=== PATIENT | female | born 1995 | race African-American/Black ===

== ENCOUNTER 2017-11-19 00:22 | Emergency (ER) | payer OTHER ==
[~2017-11-19] VITALS: Ht 170.2 cm; Wt 94.0 kg
[~2017-11-19 00:22] MED LIST: NITR1CAP32 PO
[2017-11-19 00:26] VITALS: Ht 170.2 cm; Wt 94.0 kg
--- NOTE | 2017-11-19 00:50 | EMERGENCY ROOM VISIT NOTE ---
History First contact with patient: 00:33 Chief Complaint: CHEST PAIN Stated Complaint: CHEST PAIN History of Present Illness The patient is a 22 year old female who presents to the Emergency Room with complaints of chest pain. The patient reports that she developed pressure in the middle of her chest approximately 20 minutes prior to arrival. The pain radiated to her back. She rated the discomfort a 2/10. She states that when the pain occurred, she was lying down playing a game. She states the pain gradually improved and has resolved at this time. She reports she is currently on an antibiotic for a urinary tract infection. She denies any shortness of breath, abdominal pain, nausea/vomiting, recent illness or fevers. She denies any history of cardiac problems. She denies any family history of cardiac problems at a young age. Review of Systems A complete 10 point review of systems was reviewed with the patient with pertinent positives and negatives as per history of present illness. All else were negative. Past Medical/Surgical History Medical Problems: (1) No significant past medical history Surgical Problems: (1) No significant past surgical history Family History No family history of heart disease Social History Smoking Status: Never Smoker Marital Status: in relationship Housing Status: lives with significant other Current/Historical Medications Scheduled Nitrofurantoin Macrocrystals (Macrodantin), 1 CAP PO BID Physical Exam Vital Signs Date Time Temp Pulse Resp B/P (MAP) Pulse Ox O2 Delivery O2 Flow Rate FiO2 11/19/17 02:24 36.9 98 20 128/81 94 11/19/17 01:06 98 11/19/17 00:53 94 Room Air 11/19/17 00:26 36.9 104 20 128/81 98 Room Air Physical Exam VITALS: Vitals are noted on the nurse's note and reviewed by myself. Vital signs stable. GENERAL: This is a 22-year-old female, in no acute distress, nondiaphoretic, well-developed well-nourished. SKIN: The skin was without rashes. EARS: External auditory canals clear, tympanic membranes pearly vargas without erythema or effusion bilaterally. EYES: Pupils equal round and reactive to light and accommodation. MOUTH: Mucous membranes moist. Tonsils are not enlarged. Pharynx without erythema or exudate. NECK: Supple without nuchal rigidity. No lymphadenopathy. HEART: Regular rate and rhythm without murmurs gallops or rubs. LUNGS: Clear to auscultation bilaterally without wheezes, rales or rhonchi. No retractions or accessory muscle use. ABDOMEN: Positive bowel sounds x 4. Soft, nontender to palpation. NEURO: Patient was alert and oriented to person place and time. Medical Decision & Procedures ER Provider Diagnostic Interpretation: CHEST X-RAY: Normal cardiac silhouette. No bony abnormalities. No pneumothorax or pulmonary infiltrate. Per my interpretation Laboratory Results 11/19/17 00:45 Red Blood Count 4.69, Mean Corpuscular Volume 87.2, Mean Corpuscular Hemoglobin 29.0, Mean Corpuscular Hemoglobin Concent 33.3, Mean Platelet Volume 8.9, Neutrophils (%) (Auto) 52.1, Lymphocytes (%) (Auto) 37.3, Monocytes (%) (Auto) 8.3, Eosinophils (%) (Auto) 1.7, Basophils (%) (Auto) 0.4, Neutrophils # (Auto) 2.78, Lymphocytes # (Auto) 1.99, Monocytes # (Auto) 0.44, Eosinophils # (Auto) 0.09, Basophils # (Auto) 0.02 11/19/17 00:45 Test 11/19/17 00:45 White Blood Count 5.33 K/uL (4.8-10.8) Red Blood Count 4.69 M/uL (4.2-5.4) Hemoglobin 13.6 g/dL (12.0-16.0) Hematocrit 40.9 % (37-47) Mean Corpuscular Volume 87.2 fL (80-100) Mean Corpuscular Hemoglobin 29.0 pg (25-34) Mean Corpuscular Hemoglobin Concent 33.3 g/dl (32-36) Platelet Count 345 K/uL (130-400) Mean Platelet Volume 8.9 fL (7.4-10.4) Neutrophils (%) (Auto) 52.1 % Lymphocytes (%) (Auto) 37.3 % Monocytes (%) (Auto) 8.3 % Eosinophils (%) (Auto) 1.7 % Basophils (%) (Auto) 0.4 % Neutrophils # (Auto) 2.78 K/uL (1.4-6.5) Lymphocytes # (Auto) 1.99 K/uL (1.2-3.4) Monocytes # (Auto) 0.44 K/uL (0.11-0.59) Eosinophils # (Auto) 0.09 K/uL (0-0.5) Basophils # (Auto) 0.02 K/uL (0-0.2) RDW Standard Deviation 41.1 fL (36.4-46.3) RDW Coefficient of Variation 13.0 % (11.5-14.5) Immature Granulocyte % (Auto) 0.2 % Immature Granulocyte # (Auto) 0.01 K/uL (0.00-0.02) Anion Gap 6.0 mmol/L (3-11) Est Creatinine Clear Calc Drug Dose 121.6 ml/min Estimated GFR () 112.7 Estimated GFR (Non- 97.3 BUN/Creatinine Ratio 14.8 (10-20) Calcium Level 9.1 mg/dl (8.5-10.1) Total Bilirubin 0.4 mg/dl (0.2-1) Aspartate Amino Transf (AST/SGOT) 14 U/L (15-37) Alanine Aminotransferase (ALT/SGPT) 24 U/L (12-78) Alkaline Phosphatase 73 U/L (45-117) Troponin I < 0.015 ng/ml (0-0.045) Total Protein 8.1 gm/dl (6.4-8.2) Albumin 4.2 gm/dl (3.4-5.0) Globulin 3.9 gm/dl (2.5-4.0) Albumin/Globulin Ratio 1.1 (0.9-2) ECG Rate (beats per minute): 92 Rhythm: normal sinus Findings: no acute ischemic change, no ectopy Comparison ECG Date: no prior available Medical Decision Differential diagnosis includes acute coronary syndrome, pulmonary embolism, pneumothorax, pericarditis, myocarditis, endocarditis, anxiety, musculoskeletal pain, GERD, costochondritis, pneumonia, among others. The patient is a 22-year-old female who presents today complaining of chest pain which resolved on presentation. Labs revealed no leukocytosis, anemia or concerning electrolyte abnormalities. Troponin was not elevated. EKG was interpreted by myself and shows no ischemic findings. Patient was reassured regarding workup tonight and instructed to follow-up with her primary care provider for further evaluation. The patient's case was reviewed with Dr. Browne, ED attending physician, who agreed with my assessment and treatment plan. Based on the patient's presentation and work up, I feel the patient is stable for outpatient treatment. The patient was educated to return to the emergency department for any worsening of their current condition or new/concerning symptoms. She will follow up with her PCP. Medication Reconcilliation Current Medication List: was personally reviewed by me Blood Pressure Screening Patient's blood pressure: Normal blood pressure Impression Primary Impression: Substernal precordial chest pain Departure Information Dispostion Home / Self-Care Condition GOOD Referrals No Doctor, Assigned (PCP) Patient Instructions My [facility] Additional Instructions You have been treated in the Emergency Department for your Non-Cardiac Chest Pain. Laboratory results and Imaging Studies have ruled out any cardiac or pulmonary cause of your chest pain. For pain control, you can use the following pybl-vua-ztrbbvs medicines (if >12 yo): - Regular strength (325mg/tab) Tylenol (acetaminophen) 2 tabs every 4-6 hours as needed. Do not exceed 12 tablets in a 24 hour period. Avoid taking more than 4 grams (4000 mg) of Tylenol per day. This includes any other sources of acetaminophen you may take on a regular basis. - Regular strength (200 mg/tab) Advil (ibuprofen) 1-2 tabs every 4-6 hours as needed. Do not exceed a dose of 3200 mg per day. You should schedule a follow-up appointment with your Primary Care Provider in 2 -3 days for further evaluation from today's Emergency Department visit. Return to the Emergency Department if your current symptoms worsen despite treatment course outlined above, or if you develop any of the following symptoms : worsening chest pain, associated jaw/arm pain, nausea, dizziness, shortness of breath, bloody cough, or fainting.
[2017-11-19 00:58] LABS: BASO % 0.4 %; BASO ABS # 0.02 K/uL (0-0.2); EOS % 1.7 %; EOS ABS # 0.09 K/uL (0-0.5); HEMATOCRIT 40.9 % (37-47); HEMOGLOBIN 13.6 g/dL (12.0-16.0); IG# 0.01 K/uL (0.00-0.02); LYMPH % 37.3 %; LYMPH ABS # 1.99 K/uL (1.2-3.4); MEAN CELL VOLUME 87.2 fL (80-100); MEAN CORPUSCULAR HGB CONC 33.3 g/dl (32-36); MEAN PLATELET VOLUME 8.9 fL (7.4-10.4); MONO % 8.3 %; MONO ABS # 0.44 K/uL (0.11-0.59); NEUT % 52.1 %; NEUT ABS # 2.78 K/uL (1.4-6.5); PLATELET COUNT 345 K/uL (130-400); RED CELL DISTRIBUTION WIDTH SD 41.1 fL (36.4-46.3); WHITE BLOOD COUNT 5.33 K/uL (4.8-10.8)
[2017-11-19 01:15] LABS: ALBUMIN 4.2 gm/dl (3.4-5.0); ALT/SGPT 24 U/L (12-78); AST/SGOT 14 U/L (15-37); BLOOD UREA NITROGEN 13 mg/dl (7-18); CALCIUM 9.1 mg/dl (8.5-10.1); CARBON DIOXIDE 25 mmol/L (21-32); CREATININE 0.84 mg/dl (0.60-1.20); GLUCOSE 88 mg/dl (70-99); POTASSIUM 3.9 mmol/L (3.5-5.1); SODIUM 138 mmol/L (136-145)
[2017-11-19 01:20] LABS: ALKALINE PHOSPHATASE 73 U/L (45-117); TOTAL PROTEIN 8.1 gm/dl (6.4-8.2)
[2017-11-19 02:24] VITALS: BP 128/81; PULSE 98; TEMP 36.9; O2SAT 94
--- NOTE | 2017-11-19 08:25 | DIAGNOSTIC IMAGING REPORT ---
CHEST ONE VIEW PORTABLE CLINICAL HISTORY: Chest pain. COMPARISON STUDY: No previous studies for comparison. FINDINGS: Lung volumes are normal. No pneumothorax or pleural effusion is noted. There is no evidence for pulmonary edema. Cardiac size is normal. Mediastinal contours are normal. IMPRESSION: No acute cardiopulmonary findings. Electronically signed by: Nba Austin M.D. 11/19/2017 8:24 AM Dictated Date/Time: 11/19/2017 8:24 AM
== END 2017-11-19 02:24 | disposition home or self-care (01) ==
LOC: C.EDB 00:23 → C.EDA 02:24
DX: R07.2 Precordial pain (principal)

== ENCOUNTER 2022-03-25 09:07 | Inpatient (IN) ==
[2022-03-25] MEDS ORDERED: miSOPROStoL 50 MCG TAB PO ONE (10:04)
[2022-03-25] MEDS ORDERED: OXYTOCIN 30 UNITS/500 ML BAG IV PRN ×3 (10:04→23:33)
--- NOTE | 2022-03-25 10:10 | History & Physical Report ---
Date of Service March 25, 2022 Assessment & Plan (1) with 39 completed weeks gestation: (2) Premature rupture of membranes (PROM) affecting first : Plan: prom without labor. cx not favorable. Has a plan that was reviewed that desires minimal intervention. Discussed this plan would be more applicable to a different situation of active labor without prom. Since prom first and no labor , this is a different situation and often takes a long time. Do not know when she will enter labor if expectantly managed--may be in a couple of hours, may be many hours. discussed cervix not favorable and would recommend cervical ripening. Discussed po cytotec since ruptured and off label, common use. discussed pitocin is often needed in this particular situation at some point. Discussed goal of delivery within 24 hours and increased risk of infection after 24 hours. Discussed that she can certainly choose expectant management. After questions were answered to the best of my ability, they are agreeable to po cytotec for cervical ripening and reevaluation after 4 hours. GBS negative. Patient does not want to be told about pain management options unless she asked. Discussed my discomfort with this and that if she is very painful, I will discuss methods for help. She desires unmedicated . Discussed possible but did discuss this will be a likely prolonged process. She notes she is afraid of needles and that makes her nervous about an epidural. Fetus reassuring with 10x10 accels at this point. History of Present Illness Chief Complaint: leaking fluid Primary Care Provider: [facility] [[email or web address]] Patient is a 26yoaaf who presents to labor and delivery at39 3/7 weeks complaining of a large gush of fluid at 8am. Notes it was clear. Is having some cramping. no bleeding. has essentially been uncomplicateed. and Delivery Plans Rubella non immune--> MMR pp OB Labs: Blood Type O Positive 08/26/21 Antibody Screen NEGATIVE 08/26/21 Hemoglobin 11.6 g/dL (12.0-16.0) L 01/08/22 Hematocrit 34.4 % (37-47) L 01/08/22 Mean Corpuscular Volume 88.0 fL (80-100) 08/26/21 Platelet Count 390 K/uL (130-400) 08/26/21 Rubella IgG Antibody Non Immune (Immune) L 08/26/21 Rapid Plasma Reagin Nonreactive (Nonreactive) 08/26/21 Hepatitis B Surface Antigen Neg (Neg) 08/26/21 HIV (1&2) Ab and P24 Ag, 4th Gener Neg (Neg) 08/26/21 Glucose 1 Hour 50 gm Load 118 mg/dl (70-130) 01/08/22 Maternal Serum Alpha Fetoprotein 30.4 ng/mL 10/29/21 OB Optional Labs: Chlamydia trachomatis RNA NOT DETECTED (NOT DETECTED) 08/26/21 Neisseria gonorrhoeae RNAE NOT DETECTED (NOT DETECTED) 08/26/21 Alpha Fetoprotein Triple Screen SEE NOTE 10/29/21 CF/SMA negative Sickle Cell prep negative Rubella non-immune; will need -MLN low risk cfdna - SLN -neg afp - sln GBS negative. Allergies Allergy/AdvReac Type Severity Reaction Status Date / Time No Known Allergies Allergy Verified 03/18/22 11:34 Home Medications Medication Instructions Recorded Confirmed Type prenat.vits,neelima,sko-oxwg-fuits 1 tab PO DAILY 04/04/20 03/18/22 History Patient History Medical History Menorrhagia Surgical History H/O dilation and curettage H/O oral surgery H/O wisdom tooth extraction History of hammertoe correction AN History of hysteroscopy polypectomy Family History Grandmother (Maternal) Diabetes Other No family history of adverse response to anesthesia Denies family history of Ovarian cancer Prostate cancer Myocardial infarction Breast cancer Colorectal cancer Social History Smoking Status: Never smoker Second Hand Exposure: No; Hx Alcohol Use: No Hx Substance Use: No Preferred Language: Citizen Of [place] Communication Ability: Effective Visual Impairment: No Limitations Hearing Ability: Normal Case Assembler Required: No Beliefs That Will Affect Care: None marital status: marital status details: Dion Wagner (27) [phone] Current Living Situation: Spouse Current Living Situation Comment: lives with Spouse. current occupational status: student current occupation: Student-[employer] Other Information That Helps Us Care for You: No Feels Safe at Home: No Is there a partner from a previous relationship who is making you feel unsafe now?: No Any Concerns about Your Family Situation: No Would You Like to Speak to Someone About Your Situation: No Safety Concerns: Feels Safe At This Time Childhood Exposure to Second-Hand Smoke: No caffeine: No Physical Activity Frequency: 3-4 Times per Week Seatbelt Use: always Assistive Devices: None OB History G1--current [employer] History noncontributory Physical Exam Constitutional: WD/WN, vitals as above Gastrointestinal (Abdomen): soft, gravid, nt Psychiatric: A+Ox3, euthymic affect Genitourinary: cx--ft-1/50/-2/mid/mod toco--rare contraction efm--145 with mod variability, small accels, no decels grossly ruptured cephalic by ultrasound [facility] & Data ([facility]) Vital Signs (Past 12 Hours) Vital Signs Temp Pulse Resp BP 03/25/22 09:27 37.1 C 108 H 18 127/82 03/25/22 09:21 108 H 127/82 Coding Level of Care Code None Diagnoses with 39 completed weeks gestation Z3A.39 Premature rupture of membranes (PROM) affecting first O42.90
[2022-03-25 10:55] LABS: Hematocrit (blood only) 36.8 % (37-47); Hemoglobin 12.2 g/dL (12.0-16.0); Red Blood Count 4.14 M/uL (4.2-5.4); White Blood Count 4.86 K/uL (4.8-10.8)
[2022-03-25 10:56] LABS: Mean Corpuscular Hemoglobin 29.5 pg (25-34); Mean Corpuscular Hgb Conc 33.2 g/dL (32-36); Mean Corpuscular Volume 88.9 fL (80-100); Mean Platelet Volume 8.8 fL (7.4-10.4); Platelet Count 297 K/uL (130-400); RDW Coefficient of Variation 13.7 % (11.5-14.5); RDW Standard Deviation 44.8 fL (36.4-46.3)
--- NOTE | 2022-03-25 14:56 | Labor Progress Brief Note ---
Date of Service March 25, 2022 Subjective 4 hours since po cytotec. When I enter the room the lights are off and she is resting. Notes cramping. Assessment & Plan (1) Premature rupture of membranes (PROM) affecting first : Plan: improved cx with cytotec. will see if can do another, if can, she is amendable. If not will have to discuss expectant management vs. pitocin. fetus category one. Admission and Anticipated Discharge Date Admission Date: March 25, 2022 Physical Exam Physical Exam: cx--1+/75/-2 toco--not tracing well on her side, placed on back , palpate a contraction and mild efm--140s with mod variabiltiy accels present to 160, no decels [facility] & [facility] ([facility]) Vital Signs (Past 12 Hours) Vital Signs Temp Pulse Resp BP 03/25/22 14:49 76 113/78 03/25/22 13:08 36.9 C 03/25/22 11:09 36.8 C 86 20 112/73 03/25/22 09:27 37.1 C 108 H 18 127/82 03/25/22 09:21 108 H 127/82 Coding Level of Care Code None Diagnoses Premature rupture of membranes (PROM) affecting first O42.90
[2022-03-25] MEDS ORDERED: BUTORPHANOL TARTRATE 1 MG/ML VIAL IV ONE (15:26)
--- NOTE | 2022-03-25 15:29 | Communication Note ---
Date of Service: March 25, 2022 After discussion, patient has decided to go ahead and proceed with pitocin. Discussed pain management options per her request. discussed use of stadol in early labor but not appropriate for later labor because of issues with the fetus. Patient expresses understanding.
[2022-03-25] MEDS: LACTATED RINGER'S 1,000 ML IV PRN ×2 (16:20→19:59)
[2022-03-25] MEDS ORDERED: ACETAMINOPHEN 325 MG TAB PO STA (16:25)
[2022-03-25] MEDS ORDERED: ONDANSETRON INJ 2 MG/ML 2 ML VIAL IV PRN ×2 (16:34→20:04)
[2022-03-25] MEDS ORDERED: BUTORPHANOL TARTRATE 1 MG/ML VIAL ONE (17:40)
[2022-03-25] MEDS ORDERED: ePHEDrine sulfate 50 MG/ML AMP ONE (19:08)
[2022-03-25] MEDS ORDERED: SODIUM CHLORIDE 0.9% INJ 10 ML VIAL ONE (19:09)
[2022-03-25] MEDS ORDERED: fentaNYL citrate 100 MCG/2 ML VIAL ONE (19:09)
[2022-03-25] MEDS ORDERED: fentaNYL 2MCG/ML ROPIVACAINE 1.25MG/ML 100 ML BAG EPI ONE (19:09)
[2022-03-25] MEDS ORDERED: BUPIVACAINE 0.25% 30 ML VIAL ONE (19:09)
[2022-03-25] MEDS ORDERED: NALBUPHINE HCL INJ 10 MG/ML AMP IV PRN (20:04)
[2022-03-25] MEDS ORDERED: PROMETHAZINE HCL 6.25 MG in SODIUM CHLORIDE 0.9% 50 ML IV PRN (20:04)
[2022-03-25] MEDS ORDERED: ePHEDrine sulfate 50 MG/ML AMP IV PRN (20:04)
[2022-03-25] MEDS ORDERED: fentaNYL 2MCG/ML ROPIVACAINE 1.25MG/ML 100 ML BAG EPI PRN (20:04)
[2022-03-25] MEDS ORDERED: NALOXONE HCL 1 MG in SODIUM CHLORIDE 0.9% 1000ML 1,000 ML IV PRN (20:04)
[2022-03-25] MEDS ORDERED: diphenhydrAMINE 50 MG/ML VIAL IV PRN (20:04)
[2022-03-25] MEDS ORDERED: NALOXONE HCL 0.4 MG/1 ML VIAL/CARP IV PRN (20:04)
--- NOTE | 2022-03-25 20:04 | Anesthesiology Consultation ---
Date of Service March 25, 2022 Assessment & Plan Chart Review Chart Review: Patient NOT seen in Pre Admission Testing and Acceptable Risk for Labor Epidural Consults Requested none ASA ASA2 Proposed Anesthesia Anesthesia Type: Labor Epidural Risk / Benefits Reviewed With: PT / POA / Parent / Guardian, Accepts Plan and Informed Consent Obtained History Height/Weight Height: 5 ft 7 in Weight: 94.347 kg Allergies Allergy/AdvReac Type Severity Reaction Status Date / Time No Known Allergies Allergy Verified 03/18/22 11:34 Medications Home Medications Medication Instructions Recorded Confirmed Last Taken prenat.vits,neelima,zmy-prwk-hgjrd 1 tab PO DAILY 04/04/20 03/18/22 03/08/21 Active Medications Generic Name Dose Route Start Last Admin Trade Name Freq PRN Reason Stop Dose Admin Lactated Ringer's 1,000 mls @ 125 mls/hr 03/25/22 10:04 03/25/22 19:59 Lr IV 03/27/22 10:03 125 mls/hr .Q8H PRN Administration L&D Protocol Protocol Oxytocin 30 units in 500 mls @ 10 mls/hr 03/25/22 15:25 03/25/22 18:36 Pitocin IV 03/27/22 15:24 0.6 units/hr .Q24H PRN 10 mls/hr Labor Induction/Augmentation Titration Protocol 0.6 UNITS/HR Past Medical History Medical History Menorrhagia Exercise / Class Metabolic Activity II 4-5 Yardwork/Stairs/Walk up hill Past Family History Family History Grandmother (Maternal) Diabetes Other No family history of adverse response to anesthesia Denies family history of Ovarian cancer Prostate cancer Myocardial infarction Breast cancer Colorectal cancer Past Surgical History Surgical History H/O dilation and curettage H/O oral surgery H/O wisdom tooth extraction History of hammertoe correction AN INFANT History of hysteroscopy polypectomy Past Anesthesia History No Hx of Anesthesia Complications and No Family Hx of Anesthesia Complications History of PONV No Hx of PONV and No Hx of Motion Sickness Social History Smoking Status: Never smoker Hx Alcohol Use: No alcohol intake frequency: holidays/special occasions only Hx Substance Use: No substance use type: does not use Physical Exam Vital Signs Last Vital Signs Temp 36.8 C 03/25/22 16:42 Pulse 79 03/25/22 20:01 Resp 20 03/25/22 16:42 BP 117/68 03/25/22 20:01 Pulse Ox 98 03/25/22 19:59 ENMT Mouth: no dentition abnormality Thyromental Distance: > or= 3.5 Finger Breadths Mallampati Class: II Neck normal visual inspection Respiratory normal respiratory effort Auscultation: lungs clear to auscultation bilaterally Cardiovascular Rate/Rhythm: regular rate and regular rhythm Psychiatric Orientation: alert Testing Laboratory Results 03/25/22 10:22
--- NOTE | 2022-03-25 21:09 | Labor Progress Brief Note ---
Date of Service March 25, 2022 Subjective comfortable after epidural Assessment & Plan (1) Premature rupture of membranes (PROM) affecting first : Plan: now in active labor. fetus reassuring. anticipate . continue current management. Admission and Anticipated Discharge Date Admission Date: March 25, 2022 Physical Exam Physical Exam: cx--6-7/100/-1 toco--q2-4min, pit at 10 efm--140s with mod variability, small accels, rare small variable Results & Data ([facility]) Vital Signs (Past 12 Hours) Vital Signs Temp Pulse Resp BP Pulse Ox 03/25/22 21:05 122/78 03/25/22 21:04 93 H 97 03/25/22 20:59 92 H 98 03/25/22 20:54 94 H 98 03/25/22 20:51 83 117/70 03/25/22 20:49 76 98 03/25/22 20:44 76 98 03/25/22 20:39 78 97 03/25/22 20:36 76 119/68 03/25/22 20:34 75 99 03/25/22 20:29 93 H 98 03/25/22 20:27 101 H 92 03/25/22 20:24 77 99 03/25/22 20:19 93 H 114/70 99 03/25/22 20:17 85 113/70 03/25/22 20:15 90 117/72 03/25/22 20:14 88 99 03/25/22 20:13 85 117/74 03/25/22 20:11 82 116/68 03/25/22 20:09 103 H 114/64 98 03/25/22 20:07 81 117/68 03/25/22 20:05 85 112/62 03/25/22 20:04 85 98 03/25/22 20:03 85 108/63 03/25/22 20:01 79 117/68 03/25/22 19:59 85 121/72 98 03/25/22 19:57 76 127/77 03/25/22 19:54 108 H 100 03/25/22 19:49 79 98 03/25/22 19:44 97 H 98 03/25/22 19:05 87 129/81 03/25/22 17:45 93 H 120/79 03/25/22 16:42 36.8 C 85 20 118/76 03/25/22 16:03 88 18 126/76 03/25/22 14:51 36.8 C 20 03/25/22 14:49 76 113/78 03/25/22 13:08 36.9 C 03/25/22 11:09 36.8 C 86 20 112/73 03/25/22 09:27 37.1 C 108 H 18 127/82 03/25/22 09:21 108 H 127/82 Coding Level of Care Code None Diagnoses Premature rupture of membranes (PROM) affecting first O42.90
[2022-03-25] MEDS ORDERED: bisacodyL 10 MG SUPP PR PRN (23:33)
[2022-03-25] MEDS ORDERED: HYDROCORTISONE ACETATE 25 MG SUPP PR PRN (23:33)
[2022-03-25] MEDS ORDERED: MEASLES, MUMPS & RUBELLA VIRUS VIAL SQ ONE (23:33)
[2022-03-25] MEDS ORDERED: BENZOCAINE 20% AER SPR 82.5 GM CAN EXT PRN (23:33)
[2022-03-25] MEDS ORDERED: ACETAMINOPHEN 325 MG TAB PO PRN (23:33)
[2022-03-25] MEDS ORDERED: DIPHTHERIA/TETANUS/PERTUSSIS 0.5 ML SYR/VIAL IM ONE (23:33)
[2022-03-25] MEDS ORDERED: oxyCODONE/ACETAMINOPHEN 5mg/325mg TAB PO PRN (23:33)
--- NOTE | 2022-03-25 23:39 | Delivery Summary ---
Vaginal Delivery Summary Date of Service March 25, 2022 Vaginal Delivery Summary and 1st Degree LAC Pre-operative Diagnosis: at 39 3/7 weeks prom Post-operative Diagnosis: same Procedure: oral cytotec epidural pitocin augmentation first degree laceration and repair EBL: 300cc Anesthesia: epidural Procedure: Patient presented to labor and delivery with prom and unfavorable cervix. She was given one oral cytotec and started to contract. She then underwent and epidural. After that she was 6-7cm. She progressed to c/c/+1. The patient pushed for 4 contractions to deliver a viable male infant in doa position. there was a double nuchal cord that the baby delivered through without difficulty. The baby was vigorous. The nose and mouth were bulb suctioned and the was placed in the maternal abdomen for drying and attention. Cord was clamped and cut at one minute of life. Cord blood and segment obtained. Placenta delivered spontaneous, intact with a three vessel cord. Cervix/sulci/rectum were intact. A first degree perineal laceration was repaired in the normal standard fashion. Hemostasis obtained with dilute pitocin and fundal massage. Apgars were 8/9. Mother and baby doing well at the end of the delivery. There was a small hematoma at the right introitus that remained stable throughout the repair and delivery of placenta. [facility] Vaginal Delivery Charge Delivery Type Details: and 1st Degree LAC
[2022-03-26] MEDS: IBUPROFEN 600 MG TAB PO PRN ×3 (01:27→18:06)
--- NOTE | 2022-03-26 06:06 | Obstetrical Progress Note ---
Date of Service <David Zacarias MD - Last Filed: 03/26/22 07:05> March 26, 2022 Assessment & Plan <David Zacarias MD - Last Filed: 03/26/22 07:05> (1) Vaginal delivery: 26 yo now PPD1 from [facility] at 39wk3d -Continue routine care -Vitals reviewed- HDS, afebrile -Rubella non-immune, to receive MMR before discharge -Encourage ambulation -Encourage -Pain control with ibuprofen, acetaminophen PRN -Hgb 11.4, asymptomatic <Josie Herr MD, FACOG - Last Filed: 03/26/22 07:09> (1) Vaginal delivery: Subjective <David Zacarias MD - Last Filed: 03/26/22 07:05> Ambulation: ambulating normally Voiding: no voiding problems Passing Gas:: No Diet Tolerance:: regular diet Lochia:: Small Feeding Type:: breast feeding Current Pain Level(1-10): 0 Pt doing well overall, no acute complaints or distress. Pain well controlled with medication. Plans to breastfeed and supplement going forward. Review of Systems Denies fever/chills. Denies dyspnea, cough. Denies chest pain. Denies breast pain or discharge. Denies dysuria. Denies headache. Denies back pain. Physical Exam <David Zacarias MD - Last Filed: 03/26/22 07:05> General: Alert, oriented, no acute distress Cardiac: Regular rate and rhythm, normal S1, S2. No murmurs appreciated. Respiratory: Clear to auscultation b/l with good air flow entry, symmetric chest rise and fall. No wheezes or crackles. No increased work of breathing or accessory muscle use Abdomen: Soft, nontender, nondistended. Fundus firm and palpable at 2 cm below umbilicus. No guarding or rebound. Skin: No rashes or lesions Extremities: Warm, dry, well-perfused with capillary refill <2s b/l. No lower extremity edema, erythema, swelling or calf tenderness b/l. Results & Data ([facility]) <David Zacarias MD - Last Filed: 03/26/22 07:05> Vital Signs (Past 12 Hours) Vital Signs Temp Pulse Pulse Resp BP BP Pulse Ox 03/26/22 02:00 37.1 C 101 H 18 113/70 03/26/22 01:31 127 H 125/62 03/26/22 01:20 122 H 124/68 03/26/22 01:05 127 H 127/71 03/26/22 00:50 117 H 116/57 L 03/26/22 00:35 115 H 149/80 H 03/26/22 00:20 111 H 119/66 03/26/22 00:05 117 H 122/82 03/25/22 23:50 106 H 99/73 L 03/25/22 23:35 107 H 119/64 03/25/22 23:29 113 H 97 03/25/22 23:24 115 H 98 03/25/22 23:20 112 H 126/79 03/25/22 23:19 106 H 98 03/25/22 23:14 101 H 98 03/25/22 23:09 104 H 98 03/25/22 23:05 100 H 123/78 03/25/22 23:04 113 H 99 03/25/22 22:59 99 H 99 03/25/22 22:54 99 H 98 03/25/22 22:50 95 H 111/67 03/25/22 22:49 92 H 98 03/25/22 22:48 103 H 94 03/25/22 22:44 86 96 03/25/22 22:39 96 H 98 03/25/22 22:35 88 118/74 03/25/22 22:34 86 97 03/25/22 22:29 84 98 03/25/22 22:24 84 98 03/25/22 22:20 81 119/72 03/25/22 22:19 83 99 03/25/22 22:14 85 98 03/25/22 22:09 93 H 98 03/25/22 22:06 96 H 93 03/25/22 22:05 85 120/76 03/25/22 22:04 84 99 03/25/22 21:59 87 96 03/25/22 21:54 86 98 03/25/22 21:50 80 113/67 03/25/22 21:49 79 98 03/25/22 21:44 79 98 03/25/22 21:39 84 98 03/25/22 21:35 76 114/73 03/25/22 21:34 76 97 03/25/22 21:29 84 97 03/25/22 21:24 78 98 03/25/22 21:20 36.8 C 72 18 116/69 03/25/22 21:19 76 98 03/25/22 21:14 93 H 99 03/25/22 21:09 87 99 03/25/22 21:05 122/78 03/25/22 21:04 93 H 97 03/25/22 20:59 92 H 98 03/25/22 20:54 94 H 98 03/25/22 20:51 83 117/70 03/25/22 20:49 76 98 03/25/22 20:44 76 98 03/25/22 20:39 78 97 03/25/22 20:36 76 119/68 03/25/22 20:34 75 99 03/25/22 20:29 93 H 98 03/25/22 20:27 101 H 92 03/25/22 20:24 77 99 03/25/22 20:19 93 H 114/70 99 03/25/22 20:17 85 113/70 03/25/22 20:15 90 117/72 03/25/22 20:14 88 99 03/25/22 20:13 85 117/74 03/25/22 20:11 82 116/68 03/25/22 20:09 103 H 114/64 98 03/25/22 20:07 81 117/68 03/25/22 20:05 85 112/62 03/25/22 20:04 85 98 03/25/22 20:03 85 108/63 03/25/22 20:01 79 117/68 03/25/22 19:59 85 121/72 98 03/25/22 19:57 76 127/77 03/25/22 19:54 108 H 100 03/25/22 19:49 79 98 03/25/22 19:44 97 H 98 03/25/22 19:05 87 129/81 <Josie Herr MD, FACOG - Last Filed: 03/26/22 07:09> Co-Signing Physician Notes Resident Physician Supervision Note: I interviewed and examined the patient. Discussed with Dr. zacarias and agree with findings and plan as documented in the note. Any exceptions or clarifications are listed here: Doing well PP. Routine care. Will get MMR. Lkely home tomorrow. Documented By: Josie Herr MD, FACOG Resident Activity Tracking <David Zacarias MD - Last Filed: 03/26/22 07:05> Resident Involvement: Resident Care Provided Care Provided: OB Delivery
[2022-03-26 06:22] LABS: Hematocrit (blood only) 34.7 % (37-47); Hemoglobin 11.4 g/dL (12.0-16.0)
--- NOTE | 2022-03-26 07:07 | Anesthesia Procedure Note ---
Date of Service March 26, 2022 Anesthesia Post Epidural Note Vital Signs Vital Signs: Temp Pulse Resp BP Pulse Ox 37.1 C 101 H 18 113/70 97 03/26/22 02:00 03/26/22 02:00 03/26/22 02:00 03/26/22 02:00 03/25/22 23:29 Pain Intensity Bilateral Abdomen: Pain Intensity: 8 Notes Mental Status: alert / awake / arousable and participated in evaluation Patient Amnestic to Procedure: No Nausea / Vomiting: adequately controlled Pain: adequately controlled Airway Patency, RR, SpO2: stable & adequate BP & HR: stable & adequate Hydration State: stable & adequate Neuraxial Anesthesia: was administered and sensory block resolved Anesthetic Complications: no major complications apparent and Pt Satisfied with anesthetic care Epidural: Removed without complications and With tip intact
[2022-03-26] MEDS: PRENATAL VITAMIN 1 TAB PO SCH (08:49)
[2022-03-26] MEDS: DOCUSATE SODIUM 100 MG CAP PO SCH ×2 (08:49→20:25)
[2022-03-26] MEDS ORDERED: bisacodyL 5 MG TABEC PO SCH (20:00)
--- NOTE | 2022-03-27 06:53 | Obstetrical Progress Note ---
Date of Service March 27, 2022 Assessment & Plan (1) Encounter for care and examination after delivery: satisfactory progress continue current care plan discharge today Subjective Ambulation: ambulating normally Voiding: no voiding problems Passing Gas:: Yes Diet Tolerance:: regular diet Lochia:: Small Feeding Type:: breast feeding Review of Systems All systems reviewed & are unremarkable except as noted in HPI & below Physical Exam Constitutional WD/WN, vitals as above Psychiatric A+Ox3, euthymic affect Genitourinary OB Exam Abdomen: + fundal height Fundus: + firm and + relation to umbilicus (1 below) Results & Data ([facility]) Vital Signs (Past 12 Hours) Vital Signs Temp Pulse Resp BP Pulse Ox 03/26/22 23:00 98.2 F 83 16 110/67 99 03/26/22 20:20 98.6 F 84 16 109/72 98
[2022-03-27] MEDS: DOCUSATE SODIUM 100 MG CAP PO SCH (08:57)
[2022-03-27] MEDS: PRENATAL VITAMIN 1 TAB PO SCH (08:57)
== END 2022-03-27 12:00 | disposition home or self-care (01) | DRG 807 ==
LOC: OPB 09:07 → 4S1 09:09 → 4E2 03-26 02:14